=== PATIENT | female | born 2000 | race Caucasian/White ===

== ENCOUNTER 2019-09-29 16:35 | Emergency (ER) | payer BC, OTHER ==
[~2019-09-29] VITALS: Ht 157.5 cm; Wt 51.0 kg
[2019-09-29 16:46] VITALS: BP 126/84
[2019-09-29] MEDS ORDERED: ACETAMINOPHEN 500 MG TABLET ONE (17:25)
[2019-09-29] MEDS ORDERED: ACETAMINOPHEN 500 MG TABLET PO ONE (17:30)
--- NOTE | 2019-09-29 18:00 | NUR ---
Patient/Caregiver given discharge instructions and they have confirmed that they understand the instructions. Patient ambulatory with steady gait.
== END 2019-09-29 18:04 | disposition home or self-care (01) ==
LOC: ED 17:55
DX: G89.11 Acute pain due to trauma (principal); R07.81 Pleurodynia; M54.6 Pain in thoracic spine; W18.30XA Fall on same level, unspecified, initial encounter; Y93.89 Activity, other specified; Y92.89 Other specified places as the place of occurrence of the external cause; Y99.8 Other external cause status
CPT/HCPCS: 99283